=== PATIENT | male | born 1960 | race Caucasian/White ===

== ENCOUNTER 2023-03-17 12:31 | Emergency (ER) | payer SELFPAY | END 2023-03-17 13:35 | disposition home or self-care (01) | LOC: MADERS 12:31 | DX: K04.7 Periapical abscess without sinus (principal); L03.211 Cellulitis of face; I10 Essential (primary) hypertension; J44.9 Chronic obstructive pulmonary disease, unspecified; F17.210 Nicotine dependence, cigarettes, uncomplicated; F17.220 Nicotine dependence, chewing tobacco, uncomplicated; Z79.899 Other long term (current) drug therapy | CPT/HCPCS: 99283 ==

== ENCOUNTER 2023-09-19 16:27 | Emergency (ER) | payer OTHER, SELFPAY ==
[2023-09-19] MEDS ORDERED: Dexamethasone 10 MG/ML VIAL ONE (16:53)
[2023-09-19] MEDS ORDERED: Lidocaine 4% Patch ONE (16:53)
== END 2023-09-19 17:15 | disposition home or self-care (01) ==
LOC: MADERS 16:27
DX: M54.50 Low back pain, unspecified (principal); I10 Essential (primary) hypertension; J44.9 Chronic obstructive pulmonary disease, unspecified; F17.210 Nicotine dependence, cigarettes, uncomplicated; Z79.82 Long term (current) use of aspirin
CPT/HCPCS: 96372; 99283; J1100

== ENCOUNTER 2023-12-12 11:29 | Emergency (ER) | payer OTHER | END 2023-12-12 12:21 | disposition home or self-care (01) | LOC: MADERS 11:29 | DX: I10 Essential (primary) hypertension (principal); F17.210 Nicotine dependence, cigarettes, uncomplicated; Z55.6 Problems related to health literacy | CPT/HCPCS: 93005; 99283 ==